=== PATIENT | male | born 1995 | race African-American/Black ===

== ENCOUNTER 2020-09-24 01:50 | Emergency (ER) | payer OTHER ==
[~2020-09-24] VITALS: Ht 162.6 cm; Wt 60.0 kg
[2020-09-24] MEDS ORDERED: MIDAZOLAM 1 MG/ML, 2ML ONE (01:54)
--- NOTE | 2020-09-24 02:05 | NUR ---
pt bib remsa to room 40. pt discombobulated, has flight of words, unable to sit still, states he smoked half a blunt, unknown if mixed with anything. pt hides face, averts eyes, and difficult to maintain cooperation.
--- NOTE | 2020-09-24 02:06 | NUR ---
MD to bedside. sedative med ordered IM and pt refused the med. MD aware.
--- NOTE | 2020-09-24 02:24 | NUR ---
pt continuously leaves his room and strolls around the ER, and has been reoriented to go back to his room. security called to help pt find his room and advise him to not be roaming the halls. pt states he just wants to leave. it was made known to the pt that he is not on a hold and is free to go at any time, but that it would serve his best interest if he stayed and allowed us to treat and take care of him. Pt is told this is a safe and secure place to be at this time, and to take some time and try and calm down in the room. pt uncooperative, and has flight of words and pacing back and forth. states he does not want to be locked in room, but that is because he couldn't figure out how to open the door latch and thought he had been locked in there. pt calm but remains uncooperative.
--- NOTE | 2020-09-24 03:00 | NUR ---
pt finally laid down and is sleeping at this time, in no acute distress.
--- NOTE | 2020-09-24 03:43 | NUR ---
pt woke up suddenly and was disoriented and left room to pace in hallways. was reoriented to his room and that he needs to just rest at this time, and can not be walking around in the hallways. Pt v/u and is back in room and given warm blankets and is now resting again.
[2020-09-24 04:23] VITALS: BP 126/74
--- NOTE | 2020-09-24 04:24 | NUR ---
pt sleeping at this time, no distress. and on cr monitor o2 sat.
--- NOTE | 2020-09-24 05:24 | NUR ---
no changes. pt sleeping in bed. on o2 sat probe. no distress at this time.
--- NOTE | 2020-09-24 06:18 | NUR ---
no changes pt sleeping and hard to wake up, but good areation, good oxygenation, and maintains airway without problem. on o2 sat probe at 97%.
--- NOTE | 2020-09-24 07:00 | NUR ---
ASSUMED CARE. UPON ENTERING ROOM PT AWOKE AND NOTED TO HAVE TWITCHY TYPE BODY MOVEMENTS. PT ASKED IF HE HAS A RIDE HOME AND HE REPLIED NOT REALLY. PT BACK TO SLEEP AT THIS TIME
--- NOTE | 2020-09-24 08:40 | NUR ---
SPOKE WITH PT ABOUT DISCHARGE PLAN. STATES [facility]AY[facility]. PT APPEARS ANXIOUS, LOOKING OUT WINDOW OF ROOM AND PACING. TO BE PROVIDED BREAKFAST TRAY
--- NOTE | 2020-09-24 10:00 | NUR ---
PROVIDED BREAKFAST AND THEN RE-EVAL FOR DISCHARGE. PT APPEARS LESS ANXIOUS. PROVIDED TAXI TO [facility] WHERE PT STAYING
== END 2020-09-24 10:20 | disposition home or self-care (01) ==
LOC: ED 09:45
DX: G92 Toxic encephalopathy (principal); F12.10 Cannabis abuse, uncomplicated; R41.82 Altered mental status, unspecified
CPT/HCPCS: 99283